=== PATIENT | male | born 1945 | race Caucasian/White ===

== ENCOUNTER → 2023-11-04 | Outpatient (CLI) | payer BC, MEDICARE ==
[2023-11-04 10:18] LABS: BASOPHILS % (AUTO) 0.7 % (0-1); EOSINOPHILS % (AUTO) 0.8 % (0-6); HEMOGLOBIN 14.8 g/dl (14.0-17.9); LYMPHOCYTES # (AUTO) 0.7 X10'3 (1.1-4.8); LYMPHOCYTES % (AUTO) 11.6 % (21-51); MEAN CORPUSCULAR HEMOGLOBIN 30.8 PG (27.0-31.0); MEAN CORPUSCULAR HGB CONC 32.9 g/dL (33.0-36.5); MEAN CORPUSCULAR VOLUME 93.5 FL (78-98); MEAN PLATELET VOLUME 8.5 FL (7.4-10.4); MONOCYTES # (AUTO) 0.5 X10'3 (0-0.9); NEUTROPHILS # (AUTO) 4.8 X10'3 (1.8-7.7); NEUTROPHILS % (AUTO) 78.9 % (42-75); PLATELET COUNT 182 X10'3 (140-440); RED BLOOD COUNT 4.81 X10'6 (4.70-6.10); WHITE BLOOD COUNT 6.1 X10'3 (4.5-11.0)
[2023-11-04 10:39] LABS: ALANINE AMINOTRANSFERASE 25 U/L (12-78); ALBUMIN 3.5 G/DL (3.4-5.0); ALBUMIN/GLOBULIN RATIO 1.2 (1.1-1.5); ALKALINE PHOSPHATASE 56 IU/L (46-116); ANION GAP 7 (8-16); APTT 34 SECONDS (22-32); ASPARTATE AMINO TRANSFERASE 15 U/L (10-37); BILIRUBIN,TOTAL 0.6 MG/DL (0.1-1.0); BLOOD UREA NITROGEN 24 MG/DL (7-18); BUN/CREATININE RATIO 21.4 (10.0-20.0); CHLORIDE 107 MMOL/L (99-107); CREATININE 1.12 MG/DL (0.60-1.10); GLUCOSE 85 MG/DL (70-104); INR 1.2 INR; POTASSIUM 4.1 MMOL/L (3.5-5.1); PRO BRAIN NATRIURETIC PEPTIDE 669 PG/ML (0-450); PROTHROMBIN TIME 12.9 SECONDS (9.0-12.0); SODIUM 141 MMOL/L (135-145); TOTAL CARBON DIOXIDE 27.3 MMOL/L (24-32); TOTAL PROTEIN 6.5 G/DL (6.4-8.2); eGFR 64 ML/MIN
== END | disposition home or self-care (01) ==
LOC: VAS 09:30
PROVIDERS: ATTEND Internal Medicine Cardiovascular Disease
DX: I65.23 Occlusion and stenosis of bilateral carotid arteries (principal); K80.20 Calculus of gallbladder without cholecystitis without obstruction; I70.0 Atherosclerosis of aorta; R91.1 Solitary pulmonary nodule; J84.10 Pulmonary fibrosis, unspecified; M25.811 Other specified joint disorders, right shoulder; K57.30 Diverticulosis of large intestine without perforation or abscess without bleeding; I48.91 Unspecified atrial fibrillation; I35.0 Nonrheumatic aortic (valve) stenosis
CPT/HCPCS: 36415; 71046; 71275; 74174; 75572; 80053; 83880; 85025; 85610; 85730; 93005; 93880; 94010; 94727; 94729; Q9967

== ENCOUNTER → 2023-11-10 | Outpatient (CLI) | payer BC, MEDICARE ==
[~2023-11-10] MED LIST: IODIXANOL 320 MG/ML INFUS..BTL 100ML IV ONE
== END | disposition home or self-care (01) ==
LOC: TAVR 14:06
PROVIDERS: ATTEND Internal Medicine Cardiovascular Disease
DX: I35.0 Nonrheumatic aortic (valve) stenosis (principal); R06.02 Shortness of breath; I65.29 Occlusion and stenosis of unspecified carotid artery
CPT/HCPCS: Q9967

== ENCOUNTER 2023-12-22 05:22 | Inpatient (IN) | payer BC, MEDICARE, OTHER ==
[2023-12-14 14:55] LABS: BILIRUBIN,URINE NEGATIVE (Neg); CLARITY,URINE CLEAR (Clear); COLOR,URINE YELLOW (Yellow); GLUCOSE, URINE NEGATIVE (Neg); KETONES,URINE NEGATIVE (Neg); LEUKOCYTE ESTERASE ,URINE NEGATIVE (Neg); NITRITES, URINE NEGATIVE (Neg); OCCULT BLOOD,URINE NEGATIVE (Neg); PH,URINE 6.5 (4.8-8.0); PROTEIN,URINE NEGATIVE (Neg); UROBILINOGEN,URINE 0.2 E.U/dL (0.2-1.0)
[2023-12-14 15:01] LABS: UA COLLECTION TYPE CLN CATCH MIDSTREAM
[2023-12-14 15:08] LABS: PRE OP INR 1.1 INR; PRE OP PROTIME 11.6 SECONDS (9.0-12.0)
[2023-12-14 15:10] LABS: BASOPHILS % (AUTO) 0.6 % (0-1); EOSINOPHILS # (AUTO) 0.1 X10'3 (0-0.9); EOSINOPHILS % (AUTO) 1.7 % (0-6); LYMPHOCYTES # (AUTO) 0.8 X10'3 (1.1-4.8); LYMPHOCYTES % (AUTO) 14.5 % (21-51); MEAN CORPUSCULAR HEMOGLOBIN 31.2 PG (27.0-31.0); MEAN CORPUSCULAR HGB CONC 33.6 g/dL (33.0-36.5); MEAN CORPUSCULAR VOLUME 92.7 FL (78-98); MEAN PLATELET VOLUME 8.8 FL (7.4-10.4); MONOCYTES # (AUTO) 0.5 X10'3 (0-0.9); MONOCYTES % (AUTO) 8.7 % (2-12); NEUTROPHILS # (AUTO) 4.2 X10'3 (1.8-7.7); NEUTROPHILS % (AUTO) 74.5 % (42-75); PRE OP HEMOGLOBIN 14.8 g/dL (14.0-17.9); PRE OP PLATELET COUNT 190 X10'3 (140-440); PRE OP WHITE BLOOD COUNT 5.6 10'3 (4.8-10.8); RED BLOOD COUNT 4.74 X10'6 (4.70-6.10)
[2023-12-14 15:21] LABS: ALBUMIN 3.7 G/DL (3.4-5.0); ALBUMIN/GLOBULIN RATIO 1.2 (1.1-1.5); ALKALINE PHOSPHATASE 62 IU/L (46-116); BLOOD UREA NITROGEN 28 MG/DL (7-18); BUN/CREATININE RATIO 24.3 (10.0-20.0); CALCIUM 8.4 MG/DL (8.5-10.1); CHLORIDE 106 MMOL/L (99-107); CREATININE 1.15 MG/DL (0.60-1.10); PRE OP ALT 24 U/L (30-65); PRE OP ANION GAP 9 (8-16); PRE OP AST 14 U/L (10-37); PRE OP BILIRUB, TOTAL 0.4 MG/DL (0.0-1.0); PRE OP GLUCOSE 87 MG/DL (70-104); PRE OP POTASSIUM 3.9 MMOL/L (3.4-5.1); PRE OP SODIUM 143 MMOL/L (135-145); PRO BRAIN NATRIURETIC PEPTIDE 544 PG/ML (0-450); TOTAL CARBON DIOXIDE 28.4 MMOL/L (24-32); TOTAL PROTEIN 6.7 G/DL (6.4-8.2); eGFR 62 ML/MIN
[~2023-12-22] VITALS: Ht 185.4 cm; Wt 83.0 kg
[2023-12-22] VITALS (25 sets, daily range): BP systolic 101–172; BP diastolic 61–95; PULSE 68–90; RESP 11–17; TEMP 97.6–97.8; O2SAT 95–100
[~2023-12-22 05:22] MED LIST changes: +AMI200T PO; +CHOL50004 PO; +CLOP-32 PO; +GLUC1TAB75 PO; -IODIXANOL 320 MG/ML INFUS..BTL 100ML IV ONE; +MELA5TAB12 PO; +MULT-1074 PO; +RIVA20TA PO; +SOYB50CA PO; +VITA100C25 PO; +[UNRECOGNIZED DRUG - CODE] PO; +[UNRECOGNIZED DRUG - CODE] PO
[2023-12-22] MEDS: nitroPRUSSIDE (NIPRIDE) (200MCG/ML) 100ML Drip IV SCH (05:30)
[2023-12-22] MEDS: phenylephrine inj 50 MG in normal saline 250ml IV solN IV SCH (05:30)
[2023-12-22] MEDS ORDERED: ondansetron/PF 4mg/2ml inj IV PRN ×3 (05:30→08:25)
[2023-12-22] MEDS: famotidine 20mg tablet PO ONE (06:21)
[2023-12-22] MEDS: vancomycin 1,500 MG in NS 300ml IV soln IV ONE (06:21)
[2023-12-22] MEDS: ringers solution, lacted 1,000 ML IV SCH (06:24)
[2023-12-22] MEDS: cefazolin 2gm/D5W 100mL 100 ML IV ONE (06:25)
[2023-12-22] MEDS: aspirin 325mg tablet PO ONE (06:27)
[2023-12-22] MEDS ORDERED: iohexol 350MG/ML 100ml bottle IV ONE (06:53)
[2023-12-22] MEDS ORDERED: LIDOcaine 1% 30ml preserv. free vial ONE (06:53)
[2023-12-22] MEDS ORDERED: heparin 1,000 UNITS/NS 500ml 1,500 ML ONE (06:53)
[2023-12-22] MEDS ORDERED: sevoflurane 250ml liquid IH ONE (07:09)
[2023-12-22] MEDS ORDERED: protamine sulf. 10mg/ml inj. IV ONE (07:09)
[2023-12-22] MEDS ORDERED: fentaNYL/PF 50MCG/1 ML 2ML syringe ONE (07:16)
[2023-12-22] MEDS ORDERED: midazolam 1 mg/ML 2ml injection ONE (07:16)
[2023-12-22] MEDS ORDERED: protamine sulfate 10mg/ml inj. ONE (07:26)
[2023-12-22] MEDS ORDERED: meperidine/PF 25mg/ml syringe IV PRN ×3 (07:55)
[2023-12-22] MEDS ORDERED: morphine 4 MG/ML inj SYRINge IV PRN (07:55)
[2023-12-22] MEDS ORDERED: proCHLORperazine 10 MG/2 ml inj IV PRN ×2 (07:55→08:25)
[2023-12-22] MEDS ORDERED: ringers solution, lacted 1,000 ML IV SCH (07:55)
[2023-12-22] MEDS ORDERED: morphine 2 MG/ML inj. syringe IV PRN (07:55)
[2023-12-22] MEDS: ARGININE 1000 MG PO SCH (08:00)
[2023-12-22] MEDS: multivitamins, therapeutics tablet PO SCH (08:00)
[2023-12-22] MEDS: TAURINE 1000 MG PO SCH (08:00)
[2023-12-22] MEDS: CHONDRO SU A PO SCH (08:00)
[2023-12-22] MEDS: VITAMIN K2 100 MCG PO SCH (08:00)
[2023-12-22] MEDS: GLUCOSAMINE PO SCH (08:00)
[2023-12-22] MEDS: cholecalciferol (vitamin D3) 1,000 unit (25mcg) tablet PO SCH (08:00)
[2023-12-22] MEDS ORDERED: propofol inj 20 ML IV ONE (08:15)
[2023-12-22] MEDS ORDERED: ePHEDrine 50MG/ML INJ. ONE (08:15)
[2023-12-22] MEDS ORDERED: heparin 1,000unit/ml 10ml vial 10 ML ONE (08:16)
[2023-12-22] MEDS ORDERED: potassium Cl 40MEQ/270ML bag 250 ML IV PRN (08:25)
[2023-12-22] MEDS ORDERED: labetalol 20mg/4ml (5mg/ml) syringe IV PRN (08:25)
[2023-12-22] MEDS ORDERED: potassium Cl 40MEQ/1/2NS 520ml 520 ML IV PRN (08:25)
[2023-12-22] MEDS ORDERED: ALPRAZolam 0.25mg tablet PO PRN (08:25)
[2023-12-22] MEDS ORDERED: acetaminophen 325mg tablet PO PRN (08:25)
[2023-12-22] MEDS ORDERED: magnesium 2GM in 50ml NS 50 ML IV PRN (08:25)
[2023-12-22] MEDS ORDERED: potassium Cl 20mEq/100mL bag 100 ML IV PRN (08:25)
[2023-12-22] MEDS ORDERED: HYDROcodone/acetaminophen 5mg/325mg tablet PO PRN (08:25)
[2023-12-22] MEDS ORDERED: docusate sod 100mg capsule PO PRN (08:25)
[2023-12-22] MEDS ORDERED: magnesium 4gm in 100ml NS 100 ML IV PRN (08:25)
[2023-12-22] MEDS ORDERED: potassium CL 10mEq/100ml bag 100 ML IV PRN (08:25)
[2023-12-22] MEDS ORDERED: potassium Cl 20 mEq SR tablet PO PRN (08:25)
[2023-12-22] MEDS: hydrALAZINE 20mg/ml inj. IV PRN (09:55)
[2023-12-22] MEDS: sod chloride 0.9% 10ml flush syringe IV SCH (16:00)
[2023-12-22] MEDS: normal saline 1000ml 1,000 ML IV SCH (17:20)
[2023-12-22] MEDS: ceFAZolin 1GM/D5W- ADD-VANTAGE 50 ML IV SCH (17:34)
[2023-12-22] MEDS: vancomycin/NS 1 GM ADD-VANTAGE 250 ML IV SCH (20:55)
[2023-12-22] MEDS: pantoprazole 40mg Tablet.DR PO PRN (20:55)
[2023-12-22] MEDS: clopidogrel 75mg tablet PO SCH (20:55)
[2023-12-22] MEDS: amiodarone 200mg tablet PO SCH (20:56)
[2023-12-22] MEDS: MELATONIN 5MG PO SCH (21:00)
[2023-12-22] MEDS: diphenhydrAMINE 25mg capsule PO PRN (21:14)
[2023-12-23 02:00] VITALS: BP 94/56; PULSE 73; RESP 22; TEMP 97.4; O2SAT 99
[2023-12-23 06:00] VITALS: BP 94/56; PULSE 77; RESP 15; TEMP 98.8; O2SAT 96
[2023-12-23 07:42] LABS: BASOPHILS % (AUTO) 0.4 % (0-1); EOSINOPHILS % (AUTO) 0.3 % (0-6); HEMATOCRIT 39.3 % (42.0-52.0); HEMOGLOBIN 13.2 g/dl (14.0-17.9); LYMPHOCYTES # (AUTO) 0.6 X10'3 (1.1-4.8); LYMPHOCYTES % (AUTO) 8.7 % (21-51); MEAN CORPUSCULAR HGB CONC 33.6 g/dL (33.0-36.5); MEAN CORPUSCULAR VOLUME 92.3 FL (78-98); MEAN PLATELET VOLUME 8.9 FL (7.4-10.4); MONOCYTES # (AUTO) 0.9 X10'3 (0-0.9); MONOCYTES % (AUTO) 12.5 % (2-12); NEUTROPHILS # (AUTO) 5.4 X10'3 (1.8-7.7); NEUTROPHILS % (AUTO) 78.1 % (42-75); PLATELET COUNT 157 X10'3 (140-440); RED BLOOD COUNT 4.26 X10'6 (4.70-6.10); RED CELL DISTRIBUTION WIDTH 14.6 % (11.5-14.5); WHITE BLOOD COUNT 6.9 X10'3 (4.5-11.0)
[2023-12-23 09:55] LABS: ALANINE AMINOTRANSFERASE 18 U/L (12-78); ALBUMIN/GLOBULIN RATIO 1.2 (1.1-1.5); ALKALINE PHOSPHATASE 50 IU/L (46-116); ANION GAP 11 (8-16); ASPARTATE AMINO TRANSFERASE 19 U/L (10-37); BILIRUBIN,TOTAL 0.7 MG/DL (0.1-1.0); BLOOD UREA NITROGEN 22 MG/DL (7-18); BUN/CREATININE RATIO 21.4 (10.0-20.0); CALCIUM 8.2 MG/DL (8.5-10.1); CHLORIDE 108 MMOL/L (99-107); CREATININE 1.03 MG/DL (0.60-1.10); GLUCOSE 98 MG/DL (70-104); POTASSIUM 4.2 MMOL/L (3.5-5.1); PRO BRAIN NATRIURETIC PEPTIDE 512 PG/ML (0-450); SODIUM 141 MMOL/L (135-145); TOTAL CARBON DIOXIDE 22.4 MMOL/L (24-32); TOTAL PROTEIN 5.6 G/DL (6.4-8.2); eCRCL 69 ML/MIN; eGFR 70 ML/MIN
[2023-12-23 11:00] VITALS: BP 92/55; PULSE 77; RESP 18; TEMP 98.1; O2SAT 97
[2023-12-23 15:00] VITALS: BP 108/62; PULSE 99; RESP 18; TEMP 98; O2SAT 96
== END 2023-12-23 16:43 | disposition home or self-care (01) | DRG 267 ==
LOC: PAS IN 05:22 → PCU 3S 16:45
PROVIDERS: ADMIT Internal Medicine Cardiovascular Disease; ATTEND Internal Medicine Cardiovascular Disease
PROC: 03HY32Z Insertion of Monitoring Device into Upper Artery, Percutaneous Approach (ICD-10-PCS; 2023-12-22)
PROC: B41G1ZZ Fluoroscopy of Left Lower Extremity Arteries using Low Osmolar Contrast (ICD-10-PCS; 2023-12-22)
PROC: B41F1ZZ Fluoroscopy of Right Lower Extremity Arteries using Low Osmolar Contrast (ICD-10-PCS; 2023-12-22)
PROC: B3101ZZ Fluoroscopy of Thoracic Aorta using Low Osmolar Contrast (ICD-10-PCS; 2023-12-22)
PROC: 02RF38N Replacement of Aortic Valve with Zooplastic Tissue, using Rapid Deployment Technique, Percutaneous Approach (ICD-10-PCS; principal; 2023-12-22 07:09)
DX: I35.0 Nonrheumatic aortic (valve) stenosis (principal); Z00.6 Encounter for examination for normal comparison and control in clinical research program; I48.92 Unspecified atrial flutter; E78.5 Hyperlipidemia, unspecified; I10 Essential (primary) hypertension; I25.10 Atherosclerotic heart disease of native coronary artery without angina pectoris; I48.91 Unspecified atrial fibrillation; I73.9 Peripheral vascular disease, unspecified; Z98.61 Coronary angioplasty status
CPT/HCPCS: 33361; 36415; 71045; 71046; 76937; 80053; 81003; 82948; 83735; 83880; 85025; 85347; 85610; 85730; 86885; 86900; 86901; 86920; 87081; 93005; 93308; A4618; A6258; A6402; A6449; C1756; C1760; C1769; C1894; G0378; J0360; J0690; J1644; J2250; J2370; J2704; J2720; J3010; J3370; J3490; J7040; J7050; J7120; Q0163; Q9967

== ENCOUNTER 2025-06-11 13:46 | Day surgery (SDC) | payer MEDICARE, OTHER ==
[2025-06-10 12:07] LABS: MEAN PLATELET VOLUME 9.1 FL (7.4-10.4); PRE OP HEMOGLOBIN 13.7 g/dL (14.0-17.9)
[2025-06-10 12:09] LABS: PRE OP HEMATOCRIT 40.8 % (42.0-52.0); PRE OP PLATELET COUNT 196 X10'3 (140-440); PRE OP WHITE BLOOD COUNT 5.9 10'3 (4.8-10.8); RED CELL DISTRIBUTION WIDTH 13.5 % (11.5-14.5)
[2025-06-10 12:28] LABS: CREATININE 1.02 MG/DL (0.60-1.10); PRE OP ALT 30 U/L (30-65); PRE OP ANION GAP 9 (8-16); PRE OP AST 27 U/L (10-37); PRE OP BILIRUB, TOTAL 0.7 MG/DL (0.0-1.0); PRE OP GLUCOSE 91 MG/DL (70-104); PRE OP POTASSIUM 4.2 MMOL/L (3.4-5.1); PRE OP SODIUM 143 MMOL/L (135-145); TOTAL CARBON DIOXIDE 28.4 MMOL/L (24-32); eCRCL 67 ML/MIN; eGFR 71 ML/MIN
[~2025-06-11] VITALS: Ht 185.4 cm; Wt 80.8 kg
[2025-06-11] VITALS (10 sets, daily range): BP systolic 130–162; BP diastolic 69–80; PULSE 64–93; RESP 10–18; TEMP 98.1; O2SAT 93–99
[2025-06-11] MEDS: ceFAZolin 2gm/dext,iso 50mL 50 ML IV ONE (05:30)
[~2025-06-11 13:46] MED LIST changes: -AMI200T PO; +ASPI-611 PO; -CHOL50004 PO; -CLOP-32 PO; -GLUC1TAB75 PO; -MELA5TAB12 PO; -MULT-1074 PO; -SOYB50CA PO; -VITA100C25 PO; -[UNRECOGNIZED DRUG - CODE] PO; -[UNRECOGNIZED DRUG - CODE] PO
[2025-06-11] MEDS: ringers solution, lacted 1,000 ML IV SCH (14:37)
[2025-06-11] MEDS ORDERED: LIDOcaine 1% (10mg/ml)w/preservative inj. 20ml MDV ONE (15:36)
[2025-06-11] MEDS ORDERED: BUPIVAcaine/PF 2.5mg/ml (0.25%) 10ml vial ONE (15:36)
[2025-06-11] MEDS ORDERED: fentaNYL/PF 50MCG/1 ML 2ML syringe ONE (15:50)
[2025-06-11] MEDS ORDERED: midazolam 1 mg/ML 2ml injection ONE (15:50)
[2025-06-11] MEDS ORDERED: ondansetron/PF 4mg/2ml inj ONE (15:57)
[2025-06-11] MEDS ORDERED: LIDOcaine 1%/PF 5ML 10 MG/ML VIAL ONE (15:57)
[2025-06-11] MEDS ORDERED: propofol inj 20 ML IV ONE (15:57)
[2025-06-11] MEDS ORDERED: rocuronium 10mg/ml inj IV ONE ×2 (15:57)
[2025-06-11] MEDS ORDERED: acetaminophen 1,000mg/100ml IV 100 ML IV ONE (16:02)
[2025-06-11] MEDS ORDERED: hydrALAZINE 20mg/ml inj. IV PRN (16:15)
[2025-06-11] MEDS ORDERED: fentaNYL/PF 50MCG/1 ML 2ML syringe IV PRN ×2 (16:15)
[2025-06-11] MEDS ORDERED: morphine 4 MG/ML inj SYRINge IV PRN (16:15)
[2025-06-11] MEDS ORDERED: ondansetron/PF 4mg/2ml inj IV PRN (16:15)
[2025-06-11] MEDS ORDERED: ringers solution, lacted 1,000 ML IV SCH (16:15)
[2025-06-11] MEDS ORDERED: labetalol 20mg/4ml (5mg/ml) syringe IV PRN (16:15)
--- NOTE | 2025-06-11 17:39 | OPERATIVE REPORT ---
Operative Report Providers to CC: SERGIO BAEZ MD ~ Date of Procedure: Jun 11, 2025 Pre-Operative Diagnosis: Left inguinal hernia Post-Operative Diagnosis SAME as PRE-Op Procedure Performed Robotic assisted, laparoscopic left inguinal hernia repair with mesh Surgeon: Sergio Baez MD FACS Lead Ingot Molder None Anesthesiologist: Manny Butcher Type of Anesthesia: General Findings: [id number] indirect left inguinal hernia Wound class I Complications None Prosthetics\Implants used: Extra-large left Dextile mesh Estimated Blood Loss: Minimal Specimen Removed: None Description of Procedure: Patient was brought to the operating room and identified by the nursing staff and the attending physician. Patient was placed supine and general anesthesia was induced. Patient's abdomen was prepped and draped in standard sterile fashion. Preoperative antibiotics were given. Supraumbilical incision was made to allow for standard Horton entry technique. Laparoscope was inserted after insufflation. Bilateral, 8.5 mm robotic trochars were placed under laparoscopic guidance following administration of local anesthetic. The [employer] robotic arm was docked to the patient and instruments placed intra-abdominally under laparoscopic visualization. The right hemipelvis was examined and showed no evidence of right inguinal hernia. An indirect inguinal hernia was identified on the left side. Hernia sac was moderate in size. A rent was created in the peritoneum from the median umbilical fold and carried out laterally towards the anterior superior iliac spine. Preperitoneal flap was created and carried down to the symphysis pubis. The retropubic space of [place] was developed and the bladder swept medially. Dissection was carried out laterally until an indirect hernia sac was identified. This was actually fairly large in size. Hernia sac was completely dissected away from the cord structures and reduced. The critical view of the myopectineal orifice was achieved. Dissection was carried out laterally to allow space for mesh deployment. An extra-large Dextile mesh and suture was passed intra-abdominally. Mesh was laid in the preperitoneal space covering both indirect, direct, and potential femoral and obturator hernias. Mesh laid without wrinkles or folds. 3 tacking sutures using 0 Ethibond were used to fix the mesh at the symphysis pubis, rectus abdominis, and just anterior to the anterior superior iliac spine. The peritoneal rent was then closed with running, 2/0, absorbable locking suture. [place] were retrieved. Abdomen was deflated and secondary trochars removed. Fascia at the umbilical port site was closed with 0 Vicryl sutures. Skin incisions were closed with 4-0 Monocryl sutures in a subcuticular fashion. Sterile dressings were applied. Patient was awakened and taken to the [facility] care unit in stable condition. Counts repoted as correct: Yes SERGIO BAEZ MD Jun 11, 2025 17:39
[2025-06-11] MEDS: HYDROcodone/acetaminophen 5mg/325mg tablet PO PRN (18:17)
== END 2025-06-11 18:30 | disposition home or self-care (01) ==
LOC: PAS 13:46
PROVIDERS: ATTEND Surgery
DX: K40.90 Unilateral inguinal hernia, without obstruction or gangrene, not specified as recurrent (principal); I48.91 Unspecified atrial fibrillation; N18.2 Chronic kidney disease, stage 2 (mild); I73.9 Peripheral vascular disease, unspecified; Z79.01 Long term (current) use of anticoagulants; Z79.82 Long term (current) use of aspirin; Z98.890 Other specified postprocedural states; Z82.49 Family history of ischemic heart disease and other diseases of the circulatory system
CPT/HCPCS: 36415; 49650; 80053; 82948; 85025; A4215; A4618; C1781; J0131; J1100; J2250; J2405; J2704; J3010; J3490; J7030; J7120; Z7506; Z7508; Z7512; Z7610